=== PATIENT | male | born 1950 | race Caucasian/White ===

== ENCOUNTER 2018-09-20 06:49 | Day surgery (SDC) | payer MEDICARE ==
[2018-09-18 11:44] VITALS: BMI 30.8
[~2018-09-20 06:49] MED LIST: LACTATED RINGERS 1,000 ML IV SCH; LIDOCAINE 1% 20 ML VIAL (10MG/ML) FOR IV START INTRADERMA PRN
[2018-09-20] MEDS ORDERED: LACTATED RINGERS 1,000 ML IV ONE (07:07)
[2018-09-20 07:18] VITALS: TEMP 98.5
[2018-09-20] MEDS ORDERED: LIDOCAINE 1% INJ 10MG/ML (20 ML MDV) ONE (07:46)
[2018-09-20] MEDS ORDERED: PROPOFOL 10 MG/ML 20 ML VIAL IV ONE (07:46)
--- NOTE | 2018-09-20 07:49 | P.GSHP ---
History of Present Illness H&P Date: 09/20/18 Chief Complaint: Screening colonoscopy This is a 67-year-old male who presents today for screening colonoscopy. Patient denies a significant GI complaints. Past Medical History Past Medical History: Hypertension History of Any Multi-Drug Resistant Organisms: None Reported Past Surgical History: No Surgical Hx Reported Additional Past Anesthesia/Blood Transfusion Reaction / Comment(s): no anesth hx Past Psychological History: No Psychological Hx Reported Smoking Status: Never smoker Past Alcohol Use History: None Reported Past Drug Use History: None Reported - Past Family History Mother Family Medical History: No Reported History Medications and Allergies Home Medications Medication Instructions Recorded Confirmed Type Cetirizine HCl [Zyrtec] 10 mg PO DAILY 09/18/18 09/20/18 History Cholecalciferol (Vitamin D3) 5,000 unit PO QAM 09/18/18 09/20/18 History [Vitamin D3] amLODIPine [Norvasc] 5 mg PO DAILY 09/18/18 09/20/18 History diphenhydrAMINE [Benadryl] 25 mg PO HS PRN 09/18/18 09/20/18 History Allergies Allergy/AdvReac Type Severity Reaction Status Date / Time No Known Allergies Allergy Verified 09/20/18 07:13 Surgical - Exam Vital Signs Temp Pulse Resp BP Pulse Ox 98.5 F 74 14 179/84 97 09/20/18 07:17 09/20/18 07:17 09/20/18 07:17 09/20/18 07:17 09/20/18 07:17 - General well developed, well nourished, no distress - Eyes PERRL - ENT normal pinna - Neck no masses - Respiratory normal expansion - Cardiovascular Rhythm: regular - Abdomen Abdomen: soft, non tender Assessment and Plan Assessment: We'll perform screening colonoscopy
--- NOTE | 2018-09-20 08:05 | P.OP ---
Date of Procedure: 09/20/18 Preoperative Diagnosis: Screening colonoscopy Postoperative Diagnosis: Severe diverticulosis of sigmoid and left colon Procedure(s) Performed: Colonoscopy Anesthesia: SHIRA Surgeon: Jeremie Neves Pathology: none sent Condition: stable Disposition: PACU Description of Procedure: The patient's placed on the endoscopy table in the lateral position. He received IV sedation. Digital rectal exam was performed which revealed no abnormalities. The flexible colonoscope was then placed patient anus and passed throughout the entire colon. The ileocecal valve sutures. The cecum, ascending and transverse colon appeared normal. In the descending colon there was evidence of diverticular changes. In the sigmoid colon there is extensive diverticular changes with thickening of the colon. The patient appeared to have previous diverticulitis. There there was possible minimal inflammation. Scope was withdrawn rectum appeared normal. Scope was withdrawn for patient.
[2018-09-20 08:19] VITALS: BP 134/68; PULSE 58; RESP 18
== END 2018-09-20 08:46 | disposition home or self-care (01) ==
LOC: ORWHC2ENDO 06:49
PROVIDERS: ATTEND Surgery
DX: Z12.11 Encounter for screening for malignant neoplasm of colon (principal); K57.30 Diverticulosis of large intestine without perforation or abscess without bleeding; I10 Essential (primary) hypertension; Z79.899 Other long term (current) drug therapy
CPT/HCPCS: J2001; J2704; G0121